=== PATIENT | female | born 1995 | race African-American/Black ===

== ENCOUNTER 2016-08-13 22:26 | Observation (INO) | payer MEDICAID ==
[2016-08-13 22:48] LABS: BILIRUBIN,URINE NEGATIVE (NEG); GLUCOSE,URINE NEGATIVE (NEG); NITRITE,URINE NEGATIVE (NEG); PH,URINE 6.5; PROTEIN,URINE NEGATIVE (NEG-TRACE)
[2016-08-13 22:52] LABS: BACTERIA,URINE FEW /HPF (0-FEW); RBC,URINE OCC /HPF (0-2); SQUAMOUS EPITHELIAL CELL,UR MOD /LPF
[2016-08-13 22:55] LABS: BARBITURATES NEG (NEG); BENZODIAZEPINES NEG (NEG); CANNABINOIDS NEG (NEG); COCAINE NEG (NEG); METHADONE NEG (NEG); OPIATES NEG (NEG); PHENCYCLIDINE NEG (NEG)
[2016-08-13 22:56] LABS: ETHANOL, URINE NEG (NEG)
[2016-08-14] MEDS ORDERED: PANTOPRAZOLE 40 MG TABLET.DR. PO ONE
== END 2016-08-13 23:50 | disposition home or self-care (01) ==
LOC: 3 SO LND 22:26
PROVIDERS: ADMIT Obstetrics & Gynecology; ATTEND Obstetrics & Gynecology
DX: O26.892 Other specified pregnancy related conditions, second trimester (principal); R52 Pain, unspecified; M54.9 Dorsalgia, unspecified; N89.8 Other specified noninflammatory disorders of vagina; Z3A.26 26 weeks gestation of pregnancy
CPT/HCPCS: 81001; G0378; G0379; G0481; 87086

== ENCOUNTER 2016-10-17 23:46 | Observation (INO) | payer MEDICAID, OTHER ==
[2016-10-17] MEDS ORDERED: IV RINGERS,LACTATED 1000ML 1,000 ML IV SCH (23:56)
[2016-10-18 00:06] LABS: BILIRUBIN,URINE NEGATIVE (NEG); GLUCOSE,URINE NEGATIVE (NEG); NITRITE,URINE NEGATIVE (NEG); PROTEIN,URINE 30 mg/dL (NEG-TRACE); UROBILINOGEN,URINE 0.2 mg/dL (0.2 mg/dL)
[2016-10-18 00:12] LABS: BARBITURATES NEG (NEG); BENZODIAZEPINES NEG (NEG); CANNABINOIDS POS (NEG); COCAINE NEG (NEG); METHADONE NEG (NEG); OPIATES NEG (NEG); PHENCYCLIDINE NEG (NEG)
[2016-10-18 00:21] LABS: BACTERIA,URINE FEW /HPF (0-FEW); RBC,URINE 0 /HPF (0-2); SQUAMOUS EPITHELIAL CELL,UR MANY /LPF
== END 2016-10-18 01:26 | disposition home or self-care (01) ==
LOC: 3 SO LND 23:46
PROVIDERS: ADMIT Obstetrics & Gynecology; ATTEND Obstetrics & Gynecology
DX: O62.9 Abnormality of forces of labor, unspecified (principal); O36.8130 Decreased fetal movements, third trimester, not applicable or unspecified; Z3A.36 36 weeks gestation of pregnancy
CPT/HCPCS: 81001; 87086; G0378; G0379; G0481

== ENCOUNTER 2018-11-01 18:15 | Emergency (ER) | payer OTHER ==
[~2018-11-01] VITALS: Ht 157.5 cm; Wt 114.8 kg
[2018-11-01 18:25] VITALS: BP 162/95
[2018-11-01] MEDS ORDERED: NAPROXEN 500 MG TABLET PO STA (18:46)
[2018-11-01] MEDS ORDERED: DICYCLOMINE HCL 10 MG CAPSULE PO ONE (19:00)
[2018-11-01] MEDS ORDERED: CYCLOBENZAPRINE 10 MG TABLET. PO ONE (19:00)
[2018-11-01] MEDS ORDERED: ONDANSETRON ODT 4 MG TAB.RAPDIS. PO ONE (19:00)
[2018-11-01] MEDS ORDERED: predniSONE 10 MG TABLET PO ONE (19:00)
--- NOTE | 2018-11-01 19:02 | PHYS DOC ---
Past Medical History Past Medical History: No Pertinent History (PARMA AGUILAR APRN) Past Surgical History: Cholecystectomy, Tonsillectomy (PARAM AGUILAR APRN) Additional Information: 5 smokes/day Alcohol Use: None Drug Use: None (PARAM AGUILAR APRN) Adult General Chief Complaint Chief Complaint: NAUSEA/VOMITING/DIARRHA HPI HPI Patient is a 23 year old female with no significant medical history who p resents to the ED today complaining of nasal congestion, low back pain, nausea, vomiting, diarrhea, symptoms began today. Patient also complaining of mild frontal headache. Denies any fever. Denies any coughing. Denies any chance she is . Denies any abdominal pain. Denies any hematuria. (PARAM AGUILAR APRN) Review of Systems Review of Systems Constitutional: Denies fever or chills [] Eyes: Denies change in visual acuity, redness, or eye pain [] HENT: Denies nasal congestion or sore throat [] Respiratory: Denies cough or shortness of breath [] Cardiovascular: No additional information not addressed in HPI [] GI: Reports nausea, vomiting, diarrhea, denies abdominal pain : Denies dysuria or hematuria [] Musculoskeletal: Reports low back pain. Integument: Denies rash or skin lesions [] Neurologic: Reports headache, denies focal weakness or sensory changes [] All other systems were reviewed and found to be within normal limits, except as documented in this note. (PARAM AGUILAR APRN) Current Medications Current Medications Current Medications Medications (Trade) Dose Ordered Sig/Suzie Start Time Stop Time Status Last Admin Dose Admin Cyclobenzaprine HCl (Flexeril) 10 mg 1X ONCE 11/01/18 19:00 11/01/18 19:01 DC 11/01/18 19:19 10 MG Dicyclomine HCl (Bentyl) 20 mg 1X ONCE 11/01/18 19:00 11/01/18 19:01 DC 11/01/18 19:17 20 MG Naproxen (Naprosyn) 500 mg 1X STAT 11/01/18 18:46 11/01/18 18:52 DC 11/01/18 19:17 500 MG Ondansetron HCl (Zofran Odt) 4 mg 1X ONCE 11/01/18 19:00 11/01/18 19:01 DC 11/01/18 19:16 4 MG Prednisone (Prednisone) 50 mg 1X ONCE 11/01/18 19:00 11/01/18 19:01 DC 11/01/18 19:16 50 MG (ZAIRA JUAN DO) Allergies Allergies Allergies Coded Allergies Type Severity Reaction Last Updated Verified No Known Drug Allergies 08/13/16 No (ZAIRA JUAN DO) Physical Exam Physical Exam Constitutional: Well developed, well nourished, no acute distress, non-toxic appearance. [] HENT: Normocephalic, atraumatic, bilateral external ears normal, oropharynx moist, no oral exudates, nose normal. [] Eyes: PERRLA, EOMI, conjunctiva normal, no discharge. [] Neck: Normal range of motion, no tenderness, supple, no stridor. [] Cardiovascular:Heart rate regular rhythm, no murmur [] Lungs & Thorax: Bilateral breath sounds clear to auscultation [] Abdomen: Bowel sounds normal, soft, no tenderness, no masses, no pulsatile masses. [] Skin: Warm, dry, no erythema, no rash. [] Back: No tenderness, no CVA tenderness. [] Extremities: No tenderness, no cyanosis, no clubbing, ROM intact, no edema. [] Neurologic: Alert and oriented X 3, normal motor function, normal sensory function, no focal deficits noted. Cranial nerves II through XII intact Psychologic: Affect normal, judgement normal, mood normal. [] (PARAM AGUILAR APRN) Current Patient Data Vital Signs Vital Signs Date Time Temp Pulse Resp B/P (MAP) Pulse Ox O2 Delivery O2 Flow Rate FiO2 11/01/18 18:25 99.2 106 20 162/95 (117) 95 Room Air 99.2 (ZAIRA JUAN DO) Lab Values Laboratory Tests Test 11/01/18 18:30 11/01/18 18:43 Urine Color Yellow Urine Clarity Clear Urine pH 6.0 Urine Specific [place] 1.025 Urine Protein Negative mg/dL (NEG-TRACE) Urine Glucose (UA) Negative mg/dL (NEG) Urine Ketones (Stick) Negative mg/dL (NEG) Urine Blood Large (NEG) Urine Nitrite Negative (NEG) Urine Bilirubin Negative (NEG) Urine Urobilinogen Dipstick 0.2 mg/dL (0.2 mg/dL) Urine Leukocyte Esterase Trace (NEG) Urine RBC 1-2 /HPF (0-2) Urine WBC 1-4 /HPF (0-4) Urine Squamous Epithelial Cells Occ /LPF Urine Bacteria 0 /HPF (0-FEW) Urine Mucus Slight /LPF Urine Opiates Screen Neg (NEG) Urine Methadone Screen Neg (NEG) Urine Barbiturates Neg (NEG) Urine Phencyclidine Screen Neg (NEG) Urine Amphetamine/Methamphetamine Neg (NEG) Urine Benzodiazepines Screen Neg (NEG) Urine Cocaine Screen Neg (NEG) Urine Cannabinoids Screen Neg (NEG) Urine Ethyl Alcohol Neg (NEG) POC Urine HCG, Qualitative Hcg negative (Negative) (ZAIRA JUAN DO) EKG EKG [] (PARAM AGUILAR APRN) Radiology/Procedures Radiology/Procedures [] (PARAM AGUILAR APRN) Course & Med Decision Making Course & Med Decision Making Pertinent Labs and Imaging studies reviewed. (See chart for details) This is a 23-year-old female patient who presents to the ED today complaining of nausea, vomiting, diarrhea, headache, nasal congestion that began today. Patient appears well. She is in no distress. Negative urine hCG. Urine analysis is negative for infection. Patient was given prednisone, naproxen, cyclobenzaprine. D/C to home and Instructed to follow-up with her own PCP in 1-2 weeks. She requested a note for work which was provided for 2 days. (PARAM AGUILAR APRN) Dragon Disclaimer Dragon Disclaimer This electronic medical record was generated, in whole or in part, using a voice recognition dictation system. (PARAM AGUILAR APRN) Departure Departure Impression: Primary Impression: Back pain Additional Impressions: Vomiting and diarrhea Upper respiratory infection Headache Disposition: 01 HOME, SELF-CARE Condition: STABLE Referrals: NO PCP (PCP) follow up in 1 week with your doctor Patient Instructions: Back Pain, Adult, Headache, FAQs, Nausea and Vomiting, Qfhn-ff-Doul, Upper Respiratory Infection, Adult, [place] Additional Instructions: You were evaluated in the emergency room, most of your symptoms are viral. Please take the prescribed medications as ordered. Follow-up with your own doctor in 1-2 weeks. We provided do note for work for 2 days. Rest and push fluids. Scripts Pseudoephedrine Hcl (PSEUDOEPHEDRINE) 120 Mg Tablet.er 1 TAB PO BID, #10 TAB Prov: PARAM AGUILAR APRN 11/01/18 Prednisone (PREDNISONE) 50 Mg Tablet 1 TAB PO DAILY, #5 TAB Prov: PARAM AGUILAR APRN 11/01/18 Diclofenac Sodium (DICLOFENAC SODIUM) 50 Mg Tablet.dr 1 TAB PO BID, #20 TAB 0 Refills Prov: PARAM AGUILAR APRN 11/01/18 Ondansetron Hcl (ZOFRAN) 4 Mg Tablet 1 TAB PO Q6HRS, #20 TAB Prov: PARAM AGUILAR APRN 11/01/18 Ondansetron Hcl (ZOFRAN) 4 Mg Tablet 1 TAB PO Q6HRS, #20 TAB Prov: PARAM AGUILAR APRN 11/01/18 Cyclobenzaprine Hcl (CYCLOBENZAPRINE HCL) 10 Mg Tablet 1 TAB PO TID, #30 TAB Prov: PARAM AGUILAR APRN 11/01/18 Attending Signature Attending Signature I have reviewed the PA/LETTERPRESS SETTER's note and plan of care. I was available for consultation as needed during the patient's visit in the emergency department. I agree with the clinical impression, plan, and disposition. (ZAIRA JUAN DO) Problem Qualifiers Primary Impression: Back pain Back pain location: low back pain Chronicity: acute Back pain laterality: bilateral Sciatica presence: without sciatica Qualified Codes: M54.5 - Low back pain Additional Impressions: Upper respiratory infection URI type: unspecified URI Qualified Codes: J06.9 - Acute upper respiratory infection, unspecified Headache Headache type: unspecified Headache chronicity pattern: acute headache Intractability: not intractable Qualified Codes: R51 - Headache PARAM AGUILAR INOCENTE Nov 01, 2018 19:02 ZAIRA JUAN DO Nov 03, 2018 05:09
[2018-11-01 19:03] LABS: BARBITURATES NEG (NEG); BENZODIAZEPINES NEG (NEG); CANNABINOIDS NEG (NEG); COCAINE NEG (NEG); METHADONE NEG (NEG); OPIATES NEG (NEG); PHENCYCLIDINE NEG (NEG)
[2018-11-01 19:05] LABS: AMPHETAMINE/METHAMPHETAMINE NEG (NEG)
[2018-11-01 19:07] LABS: BILIRUBIN,URINE NEGATIVE (NEG); CLARITY,URINE CLEAR; COLOR,URINE YELLOW; NITRITE,URINE NEGATIVE (NEG); PROTEIN,URINE NEGATIVE (NEG-TRACE); UROBILINOGEN,URINE 0.2 mg/dL (0.2 mg/dL)
[2018-11-01 19:33] LABS: BACTERIA,URINE 0 /HPF (0-FEW); SQUAMOUS EPITHELIAL CELL,UR OCC /LPF
[2018-11-01] MEDS ORDERED: DICL50TA4 PO (19:46)
[2018-11-01] MEDS ORDERED: ONDA4TAB7 PO (19:46)
[2018-11-01] MEDS ORDERED: PRED50TA PO (19:46)
[2018-11-01] MEDS ORDERED: CYCL10TA2 PO (19:46)
[2018-11-01] MEDS ORDERED: PSEU120T58 PO (19:46)
== END 2018-11-01 20:03 | disposition home or self-care (01) ==
LOC: ER 18:15
DX: J06.9 Acute upper respiratory infection, unspecified (principal); R51 Headache; R11.2 Nausea with vomiting, unspecified; R19.7 Diarrhea, unspecified; M54.5 Low back pain; Z90.49 Acquired absence of other specified parts of digestive tract; F17.200 Nicotine dependence, unspecified, uncomplicated
CPT/HCPCS: 80307; 81001; 81025; 99284; J7512; Q0162

== ENCOUNTER 2019-02-16 16:56 | Emergency (ER) | payer OTHER ==
[~2019-02-16] VITALS: Ht 160 cm; Wt 117.9 kg
[~2019-02-16 16:56] MED LIST: CYCL10TA2 PO; DICL50TA4 PO; ONDA4TAB7 PO; PRED50TA PO; PSEU120T58 PO
[2019-02-16] MEDS ORDERED: CLINDAMYCIN 600MG PREMIX 50 ML IV ONE (17:45)
[2019-02-16] MEDS ORDERED: IV NORMAL SALINE 1000ML BAG 1,000 ML IV ONE (17:45)
[2019-02-16] MEDS ORDERED: ONDANSETRON PF 4 MG/2 ML VIAL. IV ONE (17:45)
[2019-02-16] MEDS ORDERED: MORPHINE SULFATE 4 MG/ML VIAL. IV ONE (17:45)
--- NOTE | 2019-02-16 17:51 | PHYS DOC ---
Past Medical History Past Medical History: No Pertinent History (GABRIELA PRINGLE MD) Past Surgical History: No Surgical History, Cholecystectomy, Tonsillectomy (GABRIELA PRINGLE MD) Alcohol Use: None Drug Use: None (GABRIELA PRINGLE MD) Adult General Chief Complaint Chief Complaint: DENTAL PROBLEM HPI HPI Patient is a 23 year ol female presents with 5 days of left lower molar dental pain was on amoxicillin it was getting worse Switch to azithromycin increasing now hurts to swallow hard to open mouth all the way no fevers that she knows of no medical history denies any allergies The dentist wouldn't take the tooth out due to swelling and pain moderate radiates to the neck no shortness of breath d (GABRIELA PRINGLE MD) Review of Systems Review of Systems Constitutional: Denies fever or chills [] Eyes: Denies change in visual acuity, redness, or eye pain [] : Denies dysuria or hematuria [] Musculoskeletal: Denies back pain or joint pain [] Integument: Denies rash or skin lesions [] Neurologic: Denies headache, focal weakness or sensory changes [] Endocrine: Denies polyuria or polydipsia [] All other systems were reviewed and found to be within normal limits, except as documented in this note. (GABRIELA PRINGLE MD) Current Medications Current Medications Current Medications Medications (Trade) Dose Ordered Sig/Suzie Start Time Stop Time Status Last Admin Dose Admin Acetaminophen/ Hydrocodone Bitart (Lortab 5/325) 1 tab 1X ONCE 02/16/19 21:00 02/16/19 21:01 UNV 02/16/19 21:03 1 TAB Clindamycin Phosphate 50 ml @ 100 mls/hr 1X ONCE 02/16/19 17:45 02/16/19 18:14 DC 02/16/19 18:55 100 MLS/HR Info (CONTRAST GIVEN -- Rx MONITORING) 1 each PRN DAILY PRN 02/16/19 18:15 02/18/19 18:14 Iohexol (Omnipaque 300 Mg/ml) 70 ml 1X ONCE 02/16/19 18:15 02/16/19 18:16 DC 02/16/19 20:22 70 ML Ketorolac Tromethamine (Toradol 15mg Vial) 15 mg STK-MED ONCE 02/16/19 20:00 02/16/19 20:00 DC Ketorolac Tromethamine (Toradol 30mg Vial) 30 mg 1X ONCE 02/16/19 20:00 02/16/19 20:01 DC 02/16/19 20:06 30 MG Methylprednisolone Sodium Succinate (SOLU-Medrol 125MG VIAL) 125 mg 1X ONCE 02/16/19 20:00 02/16/19 20:01 DC 02/16/19 20:02 125 MG Morphine Sulfate (Morphine Sulfate) 4 mg 1X ONCE 02/16/19 17:45 02/16/19 17:46 DC 02/16/19 18:54 4 MG Ondansetron HCl (Zofran) 4 mg 1X ONCE 02/16/19 17:45 02/16/19 17:46 DC 02/16/19 18:50 4 MG Sodium Chloride 1,000 ml @ 1,000 mls/hr 1X ONCE 02/16/19 17:45 02/16/19 18:44 DC 02/16/19 18:50 1,000 MLS/HR (TERESA VARELA MD) Allergies Allergies Allergies Coded Allergies Type Severity Reaction Last Updated Verified No Known Drug Allergies 08/13/16 No (TERESA VARELA MD) Physical Exam Physical Exam Constitutional: Well developed, well nourished, no acute distress, non-toxic appearance. [] HENT: Patient has swelling of the left lower face at the angle of the mandible there is trismus the airways patent can see the uvula there are no signs of sublingual edema there is some submandibular swelling on the left anteriorly voice is normal Neck: Normal range of motion, no tenderness, supple, no stridor. [] Cardiovascular:Heart rate regular rhythm, no murmur [] Lungs & Thorax: Bilateral breath sounds clear to auscultation [] Skin: Warm, dry, no erythema, no rash. [] Back: No tenderness, no CVA tenderness. [] Extremities: No tenderness, no cyanosis, no clubbing, ROM intact, no edema. [] Neurologic: Alert and oriented X 3, normal motor function, normal sensory function, no focal deficits noted. [] Psychologic: Affect normal, judgement normal, mood normal. [] (GABRIELA PRINGLE MD) Current Patient Data Vital Signs Vital Signs Date Time Temp Pulse Resp B/P (MAP) Pulse Ox O2 Delivery O2 Flow Rate FiO2 02/16/19 21:03 18 99 Room Air 02/16/19 19:30 71 122/58 (79) 02/16/19 17:33 98.0 98.0 (TERESA VARELA MD) Lab Values Laboratory Tests Test 02/16/19 18:48 White Blood Count 5.2 x10^3/uL (4.0-11.0) Red Blood Count 5.08 x10^6/uL (3.50-5.40) Hemoglobin 13.8 g/dL (12.0-15.5) Hematocrit 41.7 % (36.0-47.0) Mean Corpuscular Volume 82 fL (79-100) Mean Corpuscular Hemoglobin 27 pg (25-35) Mean Corpuscular Hemoglobin Concent 33 g/dL (31-37) Red Cell Distribution Width 13.9 % (11.5-14.5) Platelet Count 229 x10^3/uL (140-400) Neutrophils (%) (Auto) 29 % (31-73) L Lymphocytes (%) (Auto) 54 % (24-48) H Monocytes (%) (Auto) 11 % (0-9) H Eosinophils (%) (Auto) 5 % (0-3) H Basophils (%) (Auto) 1 % (0-3) Neutrophils # (Auto) 1.5 x10^3/uL (1.8-7.7) L Lymphocytes # (Auto) 2.8 x10^3/uL (1.0-4.8) Monocytes # (Auto) 0.6 x10^3/uL (0.0-1.1) Eosinophils # (Auto) 0.3 x10^3/uL (0.0-0.7) Basophils # (Auto) 0.0 x10^3/uL (0.0-0.2) Maternal Serum HCG Beta Subunit < 1 mIU/mL (0-5) Sodium Level 144 mmol/L (136-145) Potassium Level 4.0 mmol/L (3.5-5.1) Chloride Level 107 mmol/L (98-107) Carbon Dioxide Level 28 mmol/L (21-32) Anion Gap 9 (6-14) Blood Urea Nitrogen 8 mg/dL (7-20) Creatinine 0.7 mg/dL (0.6-1.0) Estimated GFR (Cockcroft-Gault) 125.5 BUN/Creatinine Ratio 11 (6-20) Glucose Level 76 mg/dL (70-99) Lactic Acid Level 0.8 mmol/L (0.4-2.0) Calcium Level 8.7 mg/dL (8.5-10.1) Total Bilirubin 0.2 mg/dL (0.2-1.0) Aspartate Amino Transferase (AST) 31 U/L (15-37) Alanine Aminotransferase (ALT) 39 U/L (14-59) Alkaline Phosphatase 63 U/L (46-116) Total Protein 7.3 g/dL (6.4-8.2) Albumin 3.1 g/dL (3.4-5.0) L Albumin/Globulin Ratio 0.7 (1.0-1.7) L Laboratory Tests 02/16/19 18:48 Laboratory Tests 02/16/19 18:48 (TERESA VARELA MD) Lab Values Laboratory Tests Test 02/16/19 18:48 White Blood Count 5.2 x10^3/uL (4.0-11.0) Red Blood Count 5.08 x10^6/uL (3.50-5.40) Hemoglobin 13.8 g/dL (12.0-15.5) Hematocrit 41.7 % (36.0-47.0) Mean Corpuscular Volume 82 fL (79-100) Mean Corpuscular Hemoglobin 27 pg (25-35) Mean Corpuscular Hemoglobin Concent 33 g/dL (31-37) Red Cell Distribution Width 13.9 % (11.5-14.5) Platelet Count 229 x10^3/uL (140-400) Neutrophils (%) (Auto) 29 % (31-73) L Lymphocytes (%) (Auto) 54 % (24-48) H Monocytes (%) (Auto) 11 % (0-9) H Eosinophils (%) (Auto) 5 % (0-3) H Basophils (%) (Auto) 1 % (0-3) Neutrophils # (Auto) 1.5 x10^3/uL (1.8-7.7) L Lymphocytes # (Auto) 2.8 x10^3/uL (1.0-4.8) Monocytes # (Auto) 0.6 x10^3/uL (0.0-1.1) Eosinophils # (Auto) 0.3 x10^3/uL (0.0-0.7) Basophils # (Auto) 0.0 x10^3/uL (0.0-0.2) Maternal Serum HCG Beta Subunit < 1 mIU/mL (0-5) Sodium Level 144 mmol/L (136-145) Potassium Level 4.0 mmol/L (3.5-5.1) Chloride Level 107 mmol/L (98-107) Carbon Dioxide Level 28 mmol/L (21-32) Anion Gap 9 (6-14) Blood Urea Nitrogen 8 mg/dL (7-20) Creatinine 0.7 mg/dL (0.6-1.0) Estimated GFR (Cockcroft-Gault) 125.5 BUN/Creatinine Ratio 11 (6-20) Glucose Level 76 mg/dL (70-99) Lactic Acid Level 0.8 mmol/L (0.4-2.0) Calcium Level 8.7 mg/dL (8.5-10.1) Total Bilirubin 0.2 mg/dL (0.2-1.0) Aspartate Amino Transferase (AST) 31 U/L (15-37) Alanine Aminotransferase (ALT) 39 U/L (14-59) Alkaline Phosphatase 63 U/L (46-116) Total Protein 7.3 g/dL (6.4-8.2) Albumin 3.1 g/dL (3.4-5.0) L Albumin/Globulin Ratio 0.7 (1.0-1.7) L Laboratory Tests 02/16/19 18:48 Laboratory Tests 02/16/19 18:48 Microbiology 02/16/19 Blood Culture - Preliminary, Resulted NO GROWTH AFTER 1 DAY (GABRIELA PRINGLE MD) EKG EKG [] (GABRIELA PRINGLE MD) Radiology/Procedures Radiology/Procedures [] (GABRIELA PRINGLE MD) Radiology/Procedures [facility] [address] [place], [place] [id number] IMAGING REPORT Signed PATIENT: CARLOS ENRIQUE CORDEROCCOUNT: [id number] : 1995 LOCATION: ER AGE: 23 SEX: F EXAM STATUS: REG ER ORD. PHYSICIAN: GABRIELA PRINGLE MD REASON: EVAL FOR LEFT MANDIBLE ABSCESS, WAITING FOR CREAT/UPREG. PROCEDURE: CT MAXILLOFACIAL W/CONTRAST PQRS Compliance Statement: One or more of the following individualized dose reduction techniques were utilized for this examination: 1. Automated exposure control 2. Adjustment of the mA and/or kV according to patient size 3. Use of iterative reconstruction technique CT MAXILLOFACIAL W/CONTRAST 02/16/2019 5:36 PM Indication: Mandibular abscess Comparison: None available TECHNIQUE: Multiple axial CT images of the maxillofacial structures were obtained after the intravenous administration of nonionic contrast. Coronal and sagittal reformats are provided. FINDINGS: No suspicious abnormality identified within the visualized portions of brain parenchyma and posterior fossa. Visualized [place] appears intact. Orbits are normal in appearance. Small right maxillary retention cyst identified. Repairer [employer] space is intact. Parapharyngeal fat is preserved. Nasopharynx, oropharynx and hypopharynx are intact. Visualized larynx is normal in appearance. No pathologically enlarged cervical lymph nodes are identified. Maxillary dentition are intact. Maxilla is normal in appearance. Nasal septum is predominantly midline. Ostiomeatal units are widely patent. Osseous orbits are intact. Mandibular dentition are intact. Mandible is intact. No acute fracture is identified. No osseous erosion. Floor of mouth and sublingual space is intact. Platysma is normal in appearance. No abscess is visualized involving the left mandible. IMPRESSION: No evidence for maxillofacial abscess. Electronically signed by: Maria Del Carmen Batres MD (02/16/2019 8:29 PM) [facility] DICTATED and SIGNED BY: MARIA DEL CARMEN BATRES MD DATE: 02/16/192028 (TERESA VARELA MD) Course & Med Decision Making Course & Med Decision Making Pertinent Labs and Imaging studies reviewed. (See chart for details) []Facial swelling worsening despite oral antibiotics labs and CT imaging have been ordered Care signed out to Dr. varela 6pm (GABRIELA PRINGLE MD) Course & Med Decision Making Labs and CT was unremarkable. Patient has appointment with his dentist in 2 days. Patient was advised to follow-up with her dentist and plan discharge with diagnosis of dental pain and cellulitis of face. I've spoken with the patient and/or caregivers. I've explained the patient's condition, diagnosis and treatment plan based on information available to me at this time. I've answered the patient's and/or caregivers questions and addressed any concerns. The patient and/or caregivers have a good understanding the patient's diagnosis, condition and treatment plan as can be expected at this point. Vital signs have been stabilized. The patient's condition is stable for discharge from the emergency department. The patient will pursue further outpatient evaluation with her primary care provider or other designated consulting physician as outlined in the discharge instructions. Patient and/or caregivers are agreeable to this plan of care and follow-up instructions have been explained in detail. The patient and/or caregivers have received these instructions in written format and expressed understanding of these discharge instructions. The patient and her caregivers are aware that if any significant change in condition or worsening of symptoms should prompt him to immediately return to this of the closest emergency department. If an emergent department is not readily available I would encourage him to call 911. (TERESA VARELA MD) Dragon Disclaimer Dragon Disclaimer This electronic medical record was generated, in whole or in part, using a voice recognition dictation system. (GABRIELA PRINGLE MD) Departure Departure Impression: Primary Impression: Dentalgia Additional Impressions: Facial cellulitis Morbid obesity Disposition: HOME, SELF-CARE (at 2041) Condition: IMPROVED Referrals: LITO MANRIQUE (PCP) Patient Instructions: Cellulitis, Dental Pain Additional Instructions: Drink plenty of liquids Follow-up with your dentist in 2 or 3 day Return to ER if not getting better Scripts Hydrocodone/Apap 5-325 (NORCO 5-325 TABLET) 1 Each Tablet 1 TAB PO PRN Q6HRS PRN for PAIN, #10 TAB 0 Refills Prov: TERESA VARELA MD 02/16/19 Methylprednisolone (MEDROL) 4 Mg Tab.ds.pk 1 PKG PO UD for inflammation, #1 PKG Prov: TERESA VARELA MD 02/16/19 Naproxen (NAPROSYN) 500 Mg Tablet 1 TAB PO BID for pain, #20 TAB Prov: TERESA VARELA MD 02/16/19 Clindamycin Hcl (CLINDAMYCIN HCL) 150 Mg Capsule 1 CAP PO QID, #40 CAP Prov: TERESA VARELA MD 02/16/19 Problem Qualifiers GABRIELA PRINGLE MD Feb 16, 2019 17:51 TERESA VARELA MD Feb 16, 2019 20:14
[2019-02-16] MEDS ORDERED: IOHEXOL 300 MG/ML 100ML VIAL. IV ONE (18:15)
[2019-02-16] MEDS ORDERED: CONTRAST GIVEN. MC PRN (18:15)
[2019-02-16 19:09] LABS: BASO % 1 % (0-3); EOS # 0.3 x10^3/uL (0.0-0.7); EOS % 5 % (0-3); HEMATOCRIT 41.7 % (36.0-47.0); HEMOGLOBIN 13.8 g/dL (12.0-15.5); LYMPH # 2.8 x10^3/uL (1.0-4.8); LYMPH % 54 % (24-48); MEAN CORPUSCULAR HEMOGLOBIN 27 pg (25-35); MEAN CORPUSCULAR HGB CONC 33 g/dL (31-37); MEAN CORPUSCULAR VOLUME 82 fL (79-100); MONO # 0.6 x10^3/uL (0.0-1.1); MONO % 11 % (0-9); NEUT # 1.5 x10^3/uL (1.8-7.7); NEUT % 29 % (31-73); PLATELET COUNT 229 x10^3/uL (140-400); RED BLOOD COUNT 5.08 x10^6/uL (3.50-5.40); RED CELL DISTRIBUTION WIDTH 13.9 % (11.5-14.5); WHITE BLOOD COUNT 5.2 x10^3/uL (4.0-11.0)
[2019-02-16 19:29] LABS: CALCIUM 8.7 mg/dL (8.5-10.1); CREATININE 0.7 mg/dL (0.6-1.0); GFR 125.5
[2019-02-16 19:38] LABS: ALBUMIN 3.1 g/dL (3.4-5.0); ALBUMIN/GLOBULIN RATIO 0.7 (1.0-1.7); TOTAL BILIRUBIN 0.2 mg/dL (0.2-1.0); TOTAL PROTEIN 7.3 g/dL (6.4-8.2)
[2019-02-16] MEDS ORDERED: methylPREDNISolone SOD SUCC PF 125 MG/2 ML VIAL. IV ONE (20:00)
[2019-02-16] MEDS ORDERED: KETOROLAC 30 MG/ML VIAL. IVP ONE (20:00)
[2019-02-16] MEDS ORDERED: KETOROLAC 15 MG/ML VIAL. ONE (20:00)
--- NOTE | 2019-02-16 20:32 | RAD ---
PQRS Compliance Statement: One or more of the following individualized dose reduction techniques were utilized for this examination: 1. Automated exposure control 2. Adjustment of the mA and/or kV according to patient size 3. Use of iterative reconstruction technique CT MAXILLOFACIAL W/CONTRAST 02/16/2019 5:36 PM Indication: Mandibular abscess Comparison: None available TECHNIQUE: Multiple axial CT images of the maxillofacial structures were obtained after the intravenous administration of nonionic contrast. Coronal and sagittal reformats are provided. FINDINGS: No suspicious abnormality identified within the visualized portions of brain parenchyma and posterior fossa. Visualized [place] appears intact. Orbits are normal in appearance. Small right maxillary retention cyst identified. Mobile Application Engineer space is intact. Parapharyngeal fat is preserved. Nasopharynx, oropharynx and hypopharynx are intact. Visualized larynx is normal in appearance. No pathologically enlarged cervical lymph nodes are identified. Maxillary dentition are intact. Maxilla is normal in appearance. Nasal septum is predominantly midline. Ostiomeatal units are widely patent. Osseous orbits are intact. Mandibular dentition are intact. Mandible is intact. No acute fracture is identified. No osseous erosion. Floor of mouth and sublingual space is intact. Platysma is normal in appearance. No abscess is visualized involving the left mandible. IMPRESSION: No evidence for maxillofacial abscess. Electronically signed by: Sharon Huynh MD (02/16/2019 8:29 PM) [facility]
[2019-02-16 20:45] VITALS: BP 129/68
[2019-02-16] MEDS ORDERED: NAPR-683 PO (20:48)
[2019-02-16] MEDS ORDERED: CLIN150C14 PO (20:48)
[2019-02-16] MEDS ORDERED: METH4TAB2 PO (20:48)
[2019-02-16] MEDS ORDERED: HYDROcodone/APAP 5/325MG 1 TAB TABLET PO ONE (21:00)
[2019-02-16] MEDS ORDERED: HYDR-3164 PO (21:09)
== END 2019-02-16 21:10 | disposition home or self-care (01) ==
LOC: ER 16:56
DX: K08.89 Other specified disorders of teeth and supporting structures (principal); L03.211 Cellulitis of face; E66.01 Morbid (severe) obesity due to excess calories; Z68.42 Body mass index [BMI] 45.0-49.9, adult; Z90.49 Acquired absence of other specified parts of digestive tract; Z90.89 Acquired absence of other organs
CPT/HCPCS: 36415; 70487; 80053; 83605; 84702; 85025; 87040; 96365; 96375; 99285; J1885; J2270; J2405; J2930; J3490; J7030; Q9967

== ENCOUNTER 2019-06-26 21:43 | Emergency (ER) | payer OTHER ==
[~2019-06-26] VITALS: Ht 157.5 cm; Wt 118.1 kg
[~2019-06-26 21:43] MED LIST changes: +CLIN150C14 PO; +HYDR-3164 PO; +METH4TAB2 PO; +NAPR-683 PO
[2019-06-26 21:55] VITALS: BP 177/82
[2019-06-26] MEDS ORDERED: PENI500T PO (22:30)
[2019-06-26] MEDS ORDERED: HYDR-3164 PO (22:30)
--- NOTE | 2019-06-26 22:30 | PHYS DOC ---
Past Medical History Past Medical History: No Pertinent History, Other Additional Past Medical Histor: OBESITY Past Surgical History: No Surgical History, Cholecystectomy, Tonsillectomy Smoking Status: Current Every Day Smoker Alcohol Use: None Drug Use: None Adult General Chief Complaint Chief Complaint: DENTAL PROBLEM HPI HPI Patient is a 23 year old female who presents with dental pain with facial swelling since Sunday. Patient states she does have a dental appointment next Sunday. She rates her pain a 10 out of 10. Patient denies fever, nausea, vomiting, body aches. Review of Systems Review of Systems HENT: Denies nasal congestion or sore throat. Dental pain with facial swelling. [] All other systems were reviewed and found to be within normal limits, except as documented in this note. Allergies Allergies Allergies Coded Allergies Type Severity Reaction Last Updated Verified No Known Drug Allergies 08/13/16 No Physical Exam Physical Exam Constitutional: Well developed, well nourished, no acute distress, non-toxic appearance. [] HENT: Normocephalic, atraumatic, bilateral external ears normal, oropharynx moist, no oral exudates, nose normal. Many Right upper and lower dental caries with reddened gum line. Right facial swelling. [] Eyes: PERRLA, EOMI, conjunctiva normal, no discharge. [] Neck: Normal range of motion, no tenderness, supple, no stridor. [] Cardiovascular:Heart rate regular rhythm, no murmur [] Lungs & Thorax: Bilateral breath sounds clear to auscultation [] Abdomen: Bowel sounds normal, soft, no tenderness, no masses, no pulsatile masses. [] Skin: Warm, dry, no erythema, no rash. [] Back: No tenderness, no CVA tenderness. [] Extremities: No tenderness, no cyanosis, no clubbing, ROM intact, no edema. [] Neurologic: Alert and oriented X 3, normal motor function, normal sensory function, no focal deficits noted. [] Psychologic: Affect normal, judgement normal, mood normal. [] Current Patient Data Vital Signs Vital Signs Date Time Temp Pulse Resp B/P (MAP) Pulse Ox O2 Delivery O2 Flow Rate FiO2 06/26/19 21:55 98.5 85 20 177/82 (113) 100 Room Air 98.5 EKG EKG [] Radiology/Procedures Radiology/Procedures [] Course & Med Decision Making Course & Med Decision Making Pertinent Labs and Imaging studies reviewed. (See chart for details) She has right several upper and lower dental caries. Patient states that she knows that she needs to get some teeth pulled. She has right facial swelling. Alert and oriented. Speaks in full clear sentences. Skin pink warm and dry. Vital signs within normal limits. Patient states she's been taking approximately home for pain. Patient is given a prescription for penicillin and [place]. She is education to take naproxen with the [place]. When examined inside the mouth there was no abscess seen or felt. Upper and lower gumline was reddened and 1+ swollen. [] Dragon Disclaimer Dragon Disclaimer This electronic medical record was generated, in whole or in part, using a voice recognition dictation system. Departure Departure Impression: Primary Impression: Pain, dental Additional Impression: Dental abscess Disposition: HOME, SELF-CARE Condition: STABLE Referrals: LITO MANRIQUE (PCP) Patient Instructions: Dental Abscess, Dental Pain, [id number] Additional Instructions: Follow-up with her dentist as scheduled. Take medications as prescribed and with food. Scripts Penicillin V Potassium (PENICILLIN V POTASSIUM) 500 Mg Tablet 1 TAB PO QID, #40 TAB Prov: PHAM KEATING APRN 06/26/19 Hydrocodone/Apap 5-325 (NORCO 5-325 TABLET) 1 Each Tablet 1 TAB PO PRN Q6HRS PRN for PAIN, #12 TAB 0 Refills Prov: PHAM KEATING APRN 06/26/19 Problem Qualifiers PHAM KEATING APRN Jun 26, 2019 22:30
== END 2019-06-26 22:48 | disposition home or self-care (01) ==
LOC: ER 21:43
DX: K04.7 Periapical abscess without sinus (principal); F17.200 Nicotine dependence, unspecified, uncomplicated; E66.9 Obesity, unspecified; Z68.42 Body mass index [BMI] 45.0-49.9, adult
CPT/HCPCS: 99283

== ENCOUNTER 2019-07-25 16:33 | Emergency (ER) | payer OTHER ==
[~2019-07-25] VITALS: Ht 157.5 cm; Wt 126.3 kg
[~2019-07-25 16:33] MED LIST changes: +PENI500T PO
[2019-07-25 17:23] VITALS: BP 153/94
[2019-07-25] MEDS ORDERED: CHLO15MO2 PO (18:17)
[2019-07-25] MEDS ORDERED: OXYC-325 PO (18:17)
[2019-07-25] MEDS ORDERED: METH4TAB2 PO (18:17)
--- NOTE | 2019-07-25 18:17 | PHYS DOC ---
Past Medical History Past Medical History: No Pertinent History, Other Additional Past Medical Histor: OBESITY Past Surgical History: No Surgical History, Cholecystectomy, Tonsillectomy Smoking Status: Current Every Day Smoker Alcohol Use: None Drug Use: None Adult General Chief Complaint Chief Complaint: DENTAL PROBLEM HPI HPI Patient is a 23 year old female who presents with 3 days ago went to [facility] and got into with some teeth pulled in the right upper back. Patient states that yesterday she called because she was having increased pain and swelling and then she called again today and they stated that they could not see her. Patient states hopefully on Sunday they can see her. Rates her pain a 10 out of 10. She states that she started taking amoxicillin yesterday which would have been 2 days after the procedure. She states amoxicillin helps. She states hydrocodone does not help and just makes her have a hot flash. Patient rates her pain a 10 out of 10. Review of Systems Review of Systems Constitutional: Denies fever or chills [] Eyes: Denies change in visual acuity, redness, or eye pain [] HENT: Denies nasal congestion or sore throat [] Respiratory: Denies cough or shortness of breath [] Cardiovascular: No additional information not addressed in HPI [] GI: Denies abdominal pain, nausea, vomiting, bloody stools or diarrhea [] : Denies dysuria or hematuria [] Musculoskeletal: Denies back pain or joint pain [] Integument: Denies rash or skin lesions [] Neurologic: Denies headache, focal weakness or sensory changes [] Endocrine: Denies polyuria or polydipsia [] All other systems were reviewed and found to be within normal limits, except as documented in this note. Allergies Allergies Allergies Coded Allergies Type Severity Reaction Last Updated Verified No Known Drug Allergies 08/13/16 No Physical Exam Physical Exam Constitutional: Well developed, well nourished, no acute distress, non-toxic appearance. [] HENT: Normocephalic, atraumatic, bilateral external ears normal, oropharynx moist, no oral exudates, nose normal. 2 right upper back wisdom teeth extraction.[] Eyes: PERRLA, EOMI, conjunctiva normal, no discharge. [] Neck: Normal range of motion, no tenderness, supple, no stridor. [] Cardiovascular:Heart rate regular rhythm, no murmur [] Lungs & Thorax: Bilateral breath sounds clear to auscultation [] Abdomen: Bowel sounds normal, soft, no tenderness, no masses, no pulsatile masses. [] Skin: Warm, dry, no erythema, no rash. [] Back: No tenderness, no CVA tenderness. [] Extremities: No tenderness, no cyanosis, no clubbing, ROM intact, no edema. [] Neurologic: Alert and oriented X 3, normal motor function, normal sensory function, no focal deficits noted. [] Psychologic: Affect normal, judgement normal, mood normal. [] Current Patient Data Vital Signs Vital Signs Date Time Temp Pulse Resp B/P (MAP) Pulse Ox O2 Delivery O2 Flow Rate FiO2 07/25/19 17:23 98.2 68 16 153/94 (113) 96 Room Air 98.2 EKG EKG [] Radiology/Procedures Radiology/Procedures [] Course & Med Decision Making Course & Med Decision Making Pertinent Labs and Imaging studies reviewed. (See chart for details) Patient states that she has been smoking. Patient is educated that she should not be smoking and she likely has a dry socket. The gumline where the teeth were pulled is pink in color but there is no drainage and there is some tenderness. Patient is afebrile. Patient's right side of her face is still swollen at 1-2+. Patient states the swelling has gone down. Patient is currently on amoxicillin antibiotic. I have changed her pain medication to Percocet and put her on a Medrol Dosepak. I told patient to stop smoking and do not drink anything out of Straw and she needs to stay on soft foods. Patient is educated to continue taking the amoxicillin. Patient is to get into see her dentist as soon as possible. Upon walking into the room to discharge the patient patient stated that she was very angry that it took so long to be seen and that she is in a lot of pain. Is explained to the patient that we have some very critical sick patients and I am very sorry for a weight but those patients must be seen first. Patient states she does not care and that her pain is important and I need to just give her pain medicine. I stated that I need to speak with her about her visit and her pain and get some more information from her. That is when the patient told me that she has continued to smoke. I have told the patient she needs to stop s moking. Because now she has dry sockets. Patient states that understanding of this. Patient states her understanding that she needs to follow-up with a dentist as soon as possible. I have spoken to ED director Jose Alberto about the patient being upset about her wait. [] Breann Disclaimer [place] Disclaimer This electronic medical record was generated, in whole or in part, using a voice recognition dictation system. Departure Departure Impression: Primary Impression: Pain, dental Disposition: HOME, SELF-CARE Condition: STABLE Referrals: LITO MANRIQUE (PCP) Patient Instructions: Dental Pain, [id number] Additional Instructions: Follow up with dentist as soon as possible. Dont smoke or drink through a straw. Continuos taking your antibiotic as ordered. Eat a soft diet. Scripts Chlorhexidine Gluconate (PERIDEX) 15 Ml Mouthwash 15 ML PO BID for 30 Days, #946 ML 0 Refills Prov: PHAM KEATING APRN 07/25/19 Methylprednisolone (MEDROL) 4 Mg Tab.ds.pk 1 PKG PO UD, #1 PKG Prov: PHAM KEATING APRN 07/25/19 Oxycodone HCl/Acetaminophen (Percocet 5-325 mg Tablet) 1 Each Tablet 1 TAB PO QIDPRN PRN for PAIN MDD 4 Tablet(s) for 5 Days, #20 TAB 0 Refills Prov: PHAM KEATING APRN 07/25/19 PHAM KEATING APRN Jul 25, 2019 18:17
== END 2019-07-25 18:28 | disposition home or self-care (01) ==
LOC: ER 16:33
DX: K08.89 Other specified disorders of teeth and supporting structures (principal); R60.0 Localized edema; F17.200 Nicotine dependence, unspecified, uncomplicated; E66.9 Obesity, unspecified; Z68.43 Body mass index [BMI] 50.0-59.9, adult; Z90.49 Acquired absence of other specified parts of digestive tract
CPT/HCPCS: 99283

== ENCOUNTER 2021-01-19 15:08 | Emergency (ER) | payer OTHER ==
[~2021-01-19] VITALS: Ht 157.5 cm; Wt 140.9 kg
[~2021-01-19 15:08] MED LIST changes: +CHLO15MO2 PO; -CLIN150C14 PO; +CLIN150C16 PO; +OXYC-325 PO
[2021-01-19 16:05] LABS: CLARITY,URINE CLEAR
[2021-01-19 16:13] LABS: COLOR,URINE ORANGE
[2021-01-19 16:14] LABS: BACTERIA,URINE FEW /HPF (0-FEW); RBC,URINE 0 /HPF (0-2)
[2021-01-19 16:16] LABS: U PREG PATIENT NEGATIVE (NEG)
--- NOTE | 2021-01-19 16:37 | RAD ---
EXAM: ULTRASOUND PELVIS INDICATION: Reason: pelvic pain ovarian torsion? / Spl. Instructions: / History: . COMPARISON: Transabdominal and transvaginal sonography of the pelvis Clinical indications: Left-sided pelvic pain. Possible ovarian torsion. FINDINGS: Transabdominal sonography: The urinary bladder is empty. The uterus and ovaries cannot be visualized as a result due to overlying bowel gas. Therefore, transvaginal sonography will be performed. Transvaginal sonography: The endometrial canal measures 4 mm in thickness which is normal. No uterine mass or fibroid is apparent. The longitudinal and AP and transverse dimensions of the uterus are 7.9 cm and 4.0 cm and 4.8 cm respectively. The right ovary measures 2.1 cm and 4.0 cm and 2.9 cm in size and is normal. Color Doppler flow is seen within the right ovary. The left ovary measures 3.7 cm and 2.2 cm and 1.0 cm in size and is normal. Color Doppler flow is seen within the left ovary although d iminished in comparison to the right side and this may be due to technical factors. No adnexal mass o r free fluid is apparent. IMPRESSION: Unremarkable study. Electronically signed by: Nick Campoverde MD (01/19/2021 4:34 PM) [id number]
[2021-01-19 17:05] VITALS: BP 132/74
[2021-01-19] MEDS ORDERED: FLUC150T PO (17:41)
[2021-01-19] MEDS ORDERED: SULF1TAB24 PO (17:41)
--- NOTE | 2021-01-19 17:41 | PHYS DOC ---
Past Medical History Past Medical History: No Pertinent History, Other Additional Past Medical Histor: OBESITY Past Surgical History: Cholecystectomy, Tonsillectomy Smoking Status: Current Every Day Smoker Additional Information: 3 cigarettes daily Alcohol Use: None Drug Use: None General Adult EDM: Chief Complaint: VAGINAL PROBLEM HPI: HPI: Patient is a 25 year old female who presents to the ED today complaining of 8 out of 10 left pelvic pain, symptoms began last night. Patient denies anything specifically exacerbating or relieving the pain. Describes the pain as sharp and constant. She states she has tried taking Azo thinking she has a UTI with no relief. Review of Systems: Review of Systems: Constitutional: Denies fever or chills. [] GI: Reports left pelvic pain. Denies abdominal pain, nausea, vomiting, bloody stools or diarrhea. [] : Denies dysuria. [] Musculoskeletal: Denies back pain or joint pain. [] Integument: Denies rash. [] Neurologic: Denies headache, focal weakness or sensory changes. [] Psychiatric: Denies depression or anxiety. [] Heart Score: C/O Chest Pain: N/A Risk Factors: Risk Factors: DM, Current or recent (<one month) smoker, HTN, HLP, family history of CAD, obesity. Risk Scores: Score 0 - 3: 2.5% MACE over next 6 weeks - Discharge Home Score 4 - 6: 20.3% MACE over next 6 weeks - Admit for Clinical Observation Score 7 - 10: 72.7% MACE over next 6 weeks - Early Invasive Strategies Allergies: Allergies: Allergies Coded Allergies Type Severity Reaction Last Updated Verified No Known Drug Allergies 01/19/21 No Physical Exam: PE: Constitutional: Well developed, well nourished, no acute distress, non-toxic appearance. [] Abdomen: Obese abdomen. Bowel sounds normal, soft, no tenderness, no masses, no pulsatile masses. [] Pelvic exam External pelvic is normal, cervix is visualized, no CMT, slight left adnexal tenderness. Small amount of discharge in the vaginal vault. Skin: Warm, dry, no erythema, no rash. [] Back: No tenderness, no CVA tenderness. [] Extremities: No tenderness, no cyanosis, no clubbing, ROM intact, no edema. [] Neurologic: Alert and oriented X 3, normal motor function, normal sensory function, no focal deficits noted. [] Psychologic: Affect normal, judgement normal, mood normal. [] Current Patient Data: Labs: Laboratory Tests Test 01/19/21 15:25 Urine Collection Type Unknown Urine Color [place] Urine Clarity Clear Urine pH (<5.0-8.0) Urine Specific [place] (1.000-1.030) Urine Protein mg/dL (NEG-TRACE) Urine Glucose (UA) mg/dL (NEG) Urine Ketones (Stick) mg/dL (NEG) Urine Blood (NEG) Urine Nitrite (NEG) Urine Bilirubin (NEG) Urine Urobilinogen Dipstick mg/dL (0.2 mg/dL) Urine Leukocyte Esterase (NEG) Urine RBC 0 /HPF (0-2) Urine WBC 11-20 /HPF (0-4) Urine Squamous Epithelial Cells Many /LPF Urine Bacteria Few /HPF (0-FEW) Urine Mucus Mod /LPF Urine Test Negative (NEG) Microbiology 01/19/21 Wet Prep - Final, Complete Vital Signs: Vital Signs Date Time Temp Pulse Resp B/P (MAP) Pulse Ox O2 Delivery O2 Flow Rate FiO2 01/19/21 15:38 98.6 91 24 146/70 (95) 99 Room Air 98.6 EKG: EKG: [] Radiology/Procedures: Radiology/Procedures: []PROCEDURE: PELVIS W/TV EXAM: ULTRASOUND PELVIS INDICATION: Reason: pelvic pain ovarian torsion? / Spl. Instructions: / History: . COMPARISON: Transabdominal and transvaginal sonography of the pelvis Clinical indications: Left-sided pelvic pain. Possible ovarian torsion. FINDINGS: Transabdominal sonography: The urinary bladder is empty. The uterus and ovaries cannot be visualized as a result due to overlying bowel gas. Therefore, transvaginal sonography will be performed. Transvaginal sonography: The endometrial canal measures 4 mm in thickness which is normal. No uterine mass or fibroid is apparent. The longitudinal and AP and transverse dimensions of the uterus are 7.9 cm and 4.0 cm and 4.8 cm r espectively. The right ovary measures 2.1 cm and 4.0 cm and 2.9 cm in size and is normal. Color Doppler flow is seen within the right ovary. The left ovary measures 3.7 cm and 2.2 cm and 1.0 cm in size and is normal. Color Doppler flow is seen within the left ovary although diminished in comparison to the right side and this may be due to technical factors. No adnexal mass or free fluid is apparent. IMPRESSION: Unremarkable study. Electronically signed by: Iris Campoverde MD (01/19/2021 4:34 PM) [id number] DICTATED and SIGNED BY: IRIS CMAPOVERDE MD DATE: 01/19/21 [id number] 0 Course & Med Decision Making: Course & Med Decision Making Pertinent Labs and Imaging studies reviewed. (See chart for details) This a 25-year-old female patient presented to the ED today with left pelvic pain, symptoms began yesterday. Negative urine hCG, UA not able to be read due to color, but has 11-20 WBCs will treat for UTI Positive for yeast infection, negative clue cells. Pelvic ultrasound is negative Patient was discharged on Bactrim for 3 days and fluconazole. Follow-up with OB in 1 week Dragon Disclaimer: Dragon Disclaimer: This electronic medical record was generated, in whole or in part, using a voice recognition dictation system. Departure Departure Impression: Primary Impression: Urinary tract infection Qualified Codes: N30.00 - Acute cystitis without hematuria Additional Impressions: Pelvic pain Yeast infection Disposition: HOME / SELF CARE / HOMELESS Condition: STABLE Referrals: ISIDRO DAVILA MD (PCP) Follow-up in 1 week ZAIRA GONZALEZ MD follow up in 1 week Patient Instructions: Sandra Infection, Adult, Urinary Tract Infection Additional Instructions: You were evaluated in the emergency room for pelvic pain. Your pelvic ultrasound is negative for any acute findings. You were treated for urinary tract infection and yeast infection. Take the prescribed medications as ordered. Follow-up with your COUNTRY DIRECTOR or the provided COUNTRY DIRECTOR in 1 to 2 weeks Scripts Sulfamethoxazole/Trimethoprim (BACTRIM DS TABLET) 1 Each Tablet 1 TAB PO BID, #6 TAB 0 Refills Prov: PARAM AGUILAR BOOM TENDER 01/19/21 Fluconazole (DIFLUCAN) 150 Mg Tablet 1 TAB PO ONCE, #1 TAB 1 Refill Take 1 tablet today and repeat in 7 days. Prov: PARAM AGUILAR BOOM TENDER 01/19/21 PARAM AGUILAR APRN Jan 19, 2021 17:41
[2021-01-20 20:08] LABS: GC PROBE Negative (Negative)
--- NOTE | 2021-01-21 16:53 | VNOTE ---
CALL BACK NOTE CALL BACK Microbiology 01/19/21 Urine Culture - Final, Complete 01/19/21 Wet Prep - Final, Complete Patient was contacted 01/21/2021 at 1651. Patient was notified of positive chlamydia culture on her vaginal swab. She was advised to see her primary care provider, urgent care, or return to the department for IM antibiotic treatment. Patient expressed understanding and will seek treatment. It was also advised that she notify any current or recent sexual partners to also get tested and seek treatment. OSCAR BEYER Jan 21, 2021 16:53
== END 2021-01-19 17:53 | disposition home or self-care (01) ==
LOC: ER 15:08
DX: N30.00 Acute cystitis without hematuria (principal); B37.3 Candidiasis of vulva and vagina; R10.2 Pelvic and perineal pain; Z90.49 Acquired absence of other specified parts of digestive tract; F17.210 Nicotine dependence, cigarettes, uncomplicated
CPT/HCPCS: 76830; 76856; 81001; 81025; 87086; 87491; 87591; 99284; Q0111

== ENCOUNTER 2021-01-21 18:51 | Emergency (ER) | payer OTHER ==
[~2021-01-21] VITALS: Ht 157.5 cm; Wt 138.6 kg
[~2021-01-21 18:51] MED LIST changes: +FLUC150T PO; +SULF1TAB24 PO
[2021-01-21 19:55] VITALS: BP 166/86
[2021-01-21] MEDS ORDERED: DOXY100C3 PO (20:16)
--- NOTE | 2021-01-21 20:17 | PHYS DOC ---
Past Medical History Past Medical History: No Pertinent History, Other Additional Past Medical Histor: OBESITY (OSCAR BEYRE) Past Surgical History: Cholecystectomy, Tonsillectomy (OSCAR BEYER) Smoking Status: Current Every Day Smoker Alcohol Use: None Drug Use: None (OSCAR BEYER) General Adult EDM: Chief Complaint: SEXUALLY TRANSMITTED DISEASE HPI: HPI: Patient is a 25 year old female who presents for treatment for a positive chlamydia test result. Patient was seen in the department 2 days ago, and received a call back today to come for treatment. She is with her boyfriend, who is at bedside and is also checked in as a patient. She has no other complaints at this time. (OSCAR BEYER) Review of Systems: Review of Systems: ROS negative except as mentioned in HPI. (OSCAR BEYER) Heart Score: C/O Chest Pain: No (OSCAR BEYER) Allergies: Allergies: Allergies Coded Allergies Type Severity Reaction Last Updated Verified No Known Drug Allergies 01/19/21 No (OSCAR BEYER) Physical Exam: PE: Constitutional: Well developed, well nourished, no acute distress, non-toxic appearance. Cardiovascular: Heart rate regular rhythm, no murmur. Lungs & Thorax: Bilateral breath sounds clear to auscultation. Skin: Warm, dry, no erythema, no rash. Extremities: No tenderness, no cyanosis, no clubbing, ROM intact, no edema. Neurologic: Alert and oriented X 3, normal motor function, normal sensory function, no focal deficits noted. (OSCAR BEYER) Course & Med Decision Making: Course & Med Decision Making Pertinent Labs and Imaging studies reviewed. (See chart for details) As laboratory testing was already performed on Sunday, additional testing will be deferred. Patient tested positive for chlamydia, but gonorrhea was negative. She will be treated with doxycycline only. (OSCAR BEYER) Course & Med Decision Making Treatment plan and care provided by [facility]. I was available for consult. Chart reviewed. (KACY COHN DO) Breann Disclaimer: Breann Disclaimer: This electronic medical record was generated, in whole or in part, using a voice recognition dictation system. (OSCAR BEYER) Departure Departure Impression: Primary Impression: Chlamydia Disposition: HOME / SELF CARE / HOMELESS Condition: STABLE Referrals: ISIDRO DAVILA MD (PCP) Patient Instructions: Sexually Transmitted Disease, [id number] Additional Instructions: Please take full course of antibiotics. Return to the emergency department for pelvic pain, increased vaginal discharge or pain with urination. Scripts Doxycycline Hyclate (DOXYCYCLINE HYCLATE) 100 Mg Capsule 1 CAP PO BID for 7 Days, #14 CAP Take 1 capsule by mouth twice a day for 7 days. Prov: OSCAR BEYER 01/21/21 OSCAR BEYER Jan 21, 2021 20:17 KACY COHN DO Jan 22, 2021 23:44
[2021-01-21] MEDS ORDERED: DOXYCYCLINE HYCLATE 100 MG TABLET PO ONE (20:30)
== END 2021-01-21 20:39 | disposition home or self-care (01) ==
LOC: ER 18:51
DX: A74.9 Chlamydial infection, unspecified (principal); F17.200 Nicotine dependence, unspecified, uncomplicated; E66.9 Obesity, unspecified; Z90.49 Acquired absence of other specified parts of digestive tract; Z68.43 Body mass index [BMI] 50.0-59.9, adult
CPT/HCPCS: 99283

== ENCOUNTER 2021-03-19 11:46 | Emergency (ER) | payer OTHER ==
[~2021-03-19] VITALS: Ht 160 cm; Wt 145.0 kg
[~2021-03-19 11:46] MED LIST changes: +CYCL10TA19 PO; -CYCL10TA2 PO; +DOXY100C3 PO
[2021-03-19 11:56] VITALS: BP 161/90
[2021-03-19] MEDS ORDERED: DEXAMETHASONE SOD PHOS 4 MG/ML VIAL IVP ONE (12:45)
[2021-03-19] MEDS ORDERED: MORPHINE SULFATE 4 MG/ML INJ. IVP ONE (12:45)
[2021-03-19 13:04] LABS: BASO # 0.1 x10^3/uL (0.0-0.2); BASO % 2 % (0-3); EOS # 0.4 x10^3/uL (0.0-0.7); EOS % 7 % (0-3); HEMATOCRIT 43.7 % (36.0-47.0); HEMOGLOBIN 14.5 g/dL (12.0-15.5); LYMPH # 2.9 x10^3/uL (1.0-4.8); LYMPH % 49 % (24-48); MEAN CORPUSCULAR HEMOGLOBIN 27 pg (25-35); MEAN CORPUSCULAR HGB CONC 33 g/dL (31-37); MEAN CORPUSCULAR VOLUME 83 fL (79-100); MONO # 0.5 x10^3/uL (0.0-1.1); MONO % 8 % (0-9); NEUT % 34 % (31-73); PLATELET COUNT 273 x10^3/uL (140-400); RED CELL DISTRIBUTION WIDTH 14.6 % (11.5-14.5)
[2021-03-19 13:11] LABS: CALCIUM 8.7 mg/dL (8.5-10.1); CREATININE 0.7 mg/dL (0.6-1.0); GFR 123.4; POTASSIUM 4.2 mmol/L (3.5-5.1)
[2021-03-19] MEDS ORDERED: IOHEXOL 300 MG/ML 100ML VIAL. IV ONE (13:30)
[2021-03-19] MEDS ORDERED: CONTRAST GIVEN. MC PRN (13:30)
--- NOTE | 2021-03-19 14:19 | RAD ---
CT neck with contrast. HISTORY: Submental pain, swelling CT scan the neck was done using 70 mL Omnipaque 300 contrast. Visualized portions of the upper lobes of the lungs are clear. Thyroid is homogeneous. Submandibular glands are unremarkable. Parotid glands are unremarkable. There is a mucous retention cysts in the maxillary sinus on the right. Sinuses are otherwise clear. There is a probable cavity in a molar of the mandible on the right. There is no den nav abscess. Left neck lymph nodes are mildly prominent compared to the right side, etiology for mild adenopathy is not demonstrated. There is no retropharyngeal soft tissue swelling. No neck abscess i s noted. There are artifacts off the fillings in the teeth. IMPRESSION: 1. Mild nonspecific adenopathy in the neck on the left. 2. No definitive mass or abscess or other acute finding. PQRS Compliance Statement: One or more of the following individualized dose reduction techniques were utilized for this examinat ion: 1. Automated exposure control 2. Adjustment of the mA and/or kV according to patient size 3. Use of iterative reconstruction technique Electronically signed by: Olivier Tilley MD (03/19/2021 2:17 PM) [facility]
[2021-03-19 14:21] LABS: MONONUCLEOSIS PATIENT NEGATIVE (NEGATIVE)
--- NOTE | 2021-03-19 14:28 | PHYS DOC ---
Past Medical History Past Medical History: No Pertinent History, Other Additional Past Medical Histor: OBESITY Past Surgical History: Cholecystectomy, Tonsillectomy Smoking Status: Current Every Day Smoker Alcohol Use: None Drug Use: None General Adult EDM: Chief Complaint: SORE THROAT HPI: HPI: Patient is a 25 year old female without pertinent past medical history who pre sents with 3 days of progressive sore throat. Made worse by swallowing. Has not been eating as much due to the pain. States that it hurts worse with opening her mouth and with moving her head. States the pain is worse just under her chin. She thinks it feels swollen there. Denies any drooling, can tolerate her secretions, but with pain. Has had some chills, but no documented fevers. No sick contacts. No nasal congestion, cough, shortness of breath. No noisy breathing/stridor. No history of similar in the past. Does not think that she has any dental pain or dental infections. She does have a cavity that has not yet been treated. Review of Systems: Review of Systems: Constitutional: Denies fever. Reports chills. Eyes: Denies change in visual acuity. [] HENT: Reports sore throat Respiratory: Denies cough or shortness of breath. [] Cardiovascular: Denies chest pain or edema. [] GI: Denies abdominal pain, nausea, vomiting, bloody stools or diarrhea. [] : Denies dysuria. [] Musculoskeletal: Denies back pain or joint pain. [] Integument: Denies rash. [] Neurologic: Denies headache, focal weakness or sensory changes. [] Endocrine: Denies polyuria or polydipsia. [] Lymphatic: Denies swollen glands. [] Psychiatric: Denies depression or anxiety. [] Heart Score: C/O Chest Pain: N/A Risk Factors: Risk Factors: DM, Current or recent (<one month) smoker, HTN, HLP, family history of CAD, obesity. Risk Scores: Score 0 - 3: 2.5% MACE over next 6 weeks - Discharge Home Score 4 - 6: 20.3% MACE over next 6 weeks - Admit for Clinical Observation Score 7 - 10: 72.7% MACE over next 6 weeks - Early Invasive Strategies Current Medications: Current Medications Medications (Trade) Dose Ordered Sig/Suzie Start Time Stop Time Status Last Admin Dose Admin Dexamethasone Sodium Phosphate (Decadron) 4 mg 1X ONCE 03/19/21 12:45 03/19/21 12:46 DC 03/19/21 12:53 4 MG Info (CONTRAST GIVEN -- Rx MONITORING) 1 each PRN DAILY PRN 03/19/21 13:30 03/21/21 13:29 Iohexol (Omnipaque 300 Mg/ml) 70 ml 1X ONCE 03/19/21 13:30 03/19/21 13:31 DC 03/19/21 13:54 70 ML Morphine Sulfate (Morphine Sulfate) 4 mg 1X ONCE 03/19/21 12:45 03/19/21 12:46 DC 03/19/21 12:53 4 MG Allergies: Allergies: Allergies Coded Allergies Type Severity Reaction Last Updated Verified No Known Drug Allergies 03/19/21 No Physical Exam: PE: Constitutional: Appears uncomfortable HENT: Reports submental tenderness to palpation. Submental pain with opening of the mouth and with lateral movement of the neck. No evidence of trismus. No evidence of dental infection/abscess. Does report tenderness with palpation underneath the tongue. No stridor. Uvula is midline. No peritonsillar fullness. Tolerating secretions well Neck: Normal range of motion, no tenderness, supple, no stridor. [] Cardiovascular: Normal heart rate Lungs & Thorax: Normal work of breathing Skin: Warm, dry, no erythema, no rash. [] Extremities: No tenderness, no cyanosis, no clubbing, ROM intact, no edema. [] Neurologic: Alert and oriented X 3, normal motor function, normal sensory function, no focal deficits noted. [] Psychologic: Affect normal, judgement normal, mood normal. [] Current Patient Data: Labs: Laboratory Tests Test 03/19/21 12:56 White Blood Count 6.0 x10^3/uL (4.0-11.0) Red Blood Count 5.30 x10^6/uL (3.50-5.40) Hemoglobin 14.5 g/dL (12.0-15.5) Hematocrit 43.7 % (36.0-47.0) Mean Corpuscular Volume 83 fL (79-100) Mean Corpuscular Hemoglobin 27 pg (25-35) Mean Corpuscular Hemoglobin Concent 33 g/dL (31-37) Red Cell Distribution Width 14.6 % (11.5-14.5) H Platelet Count 273 x10^3/uL (140-400) Neutrophils (%) (Auto) 34 % (31-73) Lymphocytes (%) (Auto) 49 % (24-48) H Monocytes (%) (Auto) 8 % (0-9) Eosinophils (%) (Auto) 7 % (0-3) H Basophils (%) (Auto) 2 % (0-3) Neutrophils # (Auto) 2.0 x10^3/uL (1.8-7.7) Lymphocytes # (Auto) 2.9 x10^3/uL (1.0-4.8) Monocytes # (Auto) 0.5 x10^3/uL (0.0-1.1) Eosinophils # (Auto) 0.4 x10^3/uL (0.0-0.7) Basophils # (Auto) 0.1 x10^3/uL (0.0-0.2) Maternal Serum HCG Beta Subunit < 1 mIU/mL (0-5) Sodium Level 139 mmol/L (136-145) Potassium Level 4.2 mmol/L (3.5-5.1) Chloride Level 106 mmol/L (98-107) Carbon Dioxide Level 25 mmol/L (21-32) Anion Gap 8 (6-14) Blood Urea Nitrogen 8 mg/dL (7-20) Creatinine 0.7 mg/dL (0.6-1.0) Estimated GFR (Cockcroft-Gault) 123.4 Glucose Level 94 mg/dL (70-99) Calcium Level 8.7 mg/dL (8.5-10.1) Laboratory Tests 03/19/21 12:56 Laboratory Tests 03/19/21 12:56 Vital Signs: Vital Signs Date Time Temp Pulse Resp B/P (MAP) Pulse Ox O2 Delivery O2 Flow Rate FiO2 03/19/21 12:53 Room Air 03/19/21 11:56 97.9 75 15 161/90 (113) 97 97.9 EKG: EKG: [] Radiology/Procedures: Radiology/Procedures: [] Impression: [facility] [address] [place] [address] IMAGING REPORT Signed PATIENT: ERIC CORDERO DACCOUNT: [id number] : 1995 LOCATION: ER AGE: 25 SEX: F EXAM STATUS: REG ER ORD. PHYSICIAN: MILLY HURST MD REASON: submental pain, swelling PROCEDURE: CT SOFT TISSUE NECK W/CONTRAST CT neck with contrast. HISTORY: Submental pain, swelling CT scan the neck was done using 70 mL Omnipaque 300 contrast. Visualized portions of the upper lobes of the lungs are clear. Thyroid is homogeneous. Submandibular glands are unremarkable. Parotid glands are unremarkable. There is a mucous retention cysts in the maxillary sinus on the right. Sinuses are otherwise clear. There is a probable cavity in a molar of the mandible on the right. There is no dental abscess. Left neck lymph nodes are mildly prominent compared to the right side, etiology for mild adenopathy is not demonstrated. There is no retropharyngeal soft tissue swelling. No neck abscess is noted. The re are artifacts off the fillings in the teeth. IMPRESSION: 1. Mild nonspecific adenopathy in the neck on the left. 2. No definitive mass or abscess or other acute finding. PQRS Compliance Statement: One or more of the following individualized dose reduction techniques were utilized for this examination: 1. Automated exposure control 2. Adjustment of the mA and/or kV according to patient size 3. Use of iterative reconstruction technique Electronically signed by: Olivier Tilley MD (03/19/2021 2:17 PM) [facility] DICTATED and SIGNED BY: OLIVIER TILLEY MD DATE: 03/19/21 [id number] 0 Course & Med Decision Making: Course & Med Decision Making Pertinent Labs and Imaging studies reviewed. (See chart for details) Patient is a 25-year-old female who complains of 2 days of sore throat. Complains of submental tenderness, pain with range of motion, pain with mouth opening raising concern for deep space abscess/Charles's angina, however no evidence of edema on examination. CT neck/soft tissues ordered to evaluate these complaints, reveals with only nonspecific adenopathy on the left neck without mass or abscess. Wharton negative. Strep and covid testing pending. -- strep negative. patient refused covid. will be discharged with conservative management for pharyngitis (likely viral). Dragon Disclaimer: Dragon Disclaimer: This electronic medical record was generated, in whole or in part, using a voice recognition dictation system. Departure Departure Impression: Primary Impression: Pharyngitis Disposition: HOME / SELF CARE / HOMELESS Condition: STABLE Referrals: ISIDRO DAVILA MD (PCP) Schedule appointment if your symptoms are not improved by early next week Patient Instructions: Viral Pharyngitis Additional Instructions: Your strep test was negative. Your mononucleosis test was negative. Your CT scan was reassuring. This is likely a virus causing a sore throat. Most of these are self-limited and improved on their own. In the emergency department you were given dexamethasone, steroid, to help reduce swelling. For pain tylenol and ibuprofen are best used on a schedule. Please alternate between the two. -Tylenol 1000 mg every 6 hours (do not exceed 4000 mg in one day) -Ibuprofen 400 mg every 6 hours. Take with food. Do not take for more than 1 week. If your symptoms are persisting into next week please schedule follow-up appoint with your primary care doctor. MILLY HURST MD Mar 19, 2021 14:28
[2021-03-19] MEDS ORDERED: IBUPROFEN 200 MG TABLET. PO ONE (14:30)
[2021-03-19] MEDS ORDERED: ACETAMINOPHEN 500 MG TABLET PO ONE (14:30)
[2021-03-20] MEDS ORDERED: PENI500T PO (20:51)
== END 2021-03-19 15:25 | disposition home or self-care (01) ==
LOC: ER 11:46
DX: J02.9 Acute pharyngitis, unspecified (principal); F17.200 Nicotine dependence, unspecified, uncomplicated
CPT/HCPCS: 36415; 70491; 80048; 84702; 85025; 86308; 87070; 87880; 96374; 96375; 99285; J1100; J2270; Q9967

== ENCOUNTER 2021-03-20 18:47 | Emergency (ER) | payer OTHER ==
[~2021-03-20] VITALS: Ht 160 cm; Wt 131.0 kg
[2021-03-20 20:20] VITALS: BP 161/90
[2021-03-20] MEDS ORDERED: HYDROcodone/APAP 5/325MG 1 TAB TABLET PO ONE (20:45)
[2021-03-20] MEDS ORDERED: IBUPROFEN 200 MG TABLET. PO ONE (20:45)
[2021-03-20] MEDS ORDERED: PENI500T PO (20:51)
--- NOTE | 2021-03-20 20:51 | PHYS DOC ---
Past Medical History Past Medical History: No Pertinent History, Other Additional Past Medical Histor: OBESITY Past Surgical History: Cholecystectomy, Tonsillectomy Smoking Status: Current Every Day Smoker Alcohol Use: None Drug Use: None General Adult EDM: Chief Complaint: DENTAL PROBLEM HPI: HPI: Patient is a 25 year old female presents emergency department complaining of left lower molar dental pain. Patient reports she has cavities in her teeth and has an appointment to see her dentist this coming Sunday. Patient reports she has taken Tylenol at home for the her dental pain without relief. Patient reports she last took 2 extra strength Tylenol's at 9 AM this morning. Patient denies taking ibuprofen for pain. Patient states she would like to be on an antibiotic in case she needs to have dental work done and does not want to delay dental work care. Patient denies tongue numbness, facial numbness, facial paralysis. Patient denies recent fever or chills, patient denies trauma to her teeth. Patient denies other physical complaints or physical concerns. Review of Systems: Review of Systems: 14 body systems of review of systems have been reviewed. See HPI for pertinent positives and negative responses, otherwise all other systems are negative, nonpertinent or noncontributory. Constitutional: Negative except as outlined in HPI above. Skin: Negative except as outlined in HPI above. Eyes: Negative except as outlined in HPI above. HENT: Negative except as outlined in HPI above. Respiratory: Negative except as outlined in HPI above. Cardiovascular: Negative except as outlined in HPI above. GI: Negative except as outlined in HPI above. : Negative except as outlined in HPI above. Musculoskeletal: Negative except as outlined in HPI above. Integument: Negative except as outlined in HPI above. Neurologic: Negative except as outlined in HPI above. Endocrine: Negative except as outlined in HPI above. Lymphatic: Negative except as outlined in HPI above. Psychiatric: Negative except as outlined in HPI above. Heart Score: C/O Chest Pain: No Risk Factors: Risk Factors: DM, Current or recent (<one month) smoker, HTN, HLP, family history of CAD, obesity. Risk Scores: Score 0 - 3: 2.5% MACE over next 6 weeks - Discharge Home Score 4 - 6: 20.3% MACE over next 6 weeks - Admit for Clinical Observation Score 7 - 10: 72.7% MACE over next 6 weeks - Early Invasive Strategies Current Medications: Current Medications Medications (Trade) Dose Ordered Sig/Suzie Start Time Stop Time Status Last Admin Dose Admin Acetaminophen/ Hydrocodone Bitart (Lortab 5/325) 2 tab 1X ONCE 03/20/21 20:45 03/20/21 20:46 UNV Ibuprofen (Motrin) 600 mg 1X ONCE 03/20/21 20:45 03/20/21 20:46 UNV Allergies: Allergies: Allergies Coded Allergies Type Severity Reaction Last Updated Verified No Known Drug Allergies 03/19/21 No Physical Exam: PE: Constitutional: Well developed, well nourished, no acute distress, non-toxic appearance. 25-year-old female in no apparent distress. HENT: Normocephalic, atraumatic. No deep tissue infectious process of the oropharynx appreciated, no drooling, no trismus, poor dentition with dental caries, no bleeding of the gums, no gingivitis, no abscess appreciated. No broken teeth. No lymphadenopathy of the head or neck appreciated, bilateral TMs within normal limits, intact. Eyes: Conjunctiva normal, no discharge. Neck: Normal range of motion, no stridor. No nuchal rigidity, no meningismus signs Cardiovascular: No cyanosis appreciated, distal cap refill less than 2 seconds. Lungs & Thorax: Patient is in no respiratory distress, no audible adventitious lung sounds appreciated. Abdomen: Nontender, no abnormalities noted. Skin: Warm, dry, no erythema, no rash. Back: No tenderness, no deformities. Extremities: No tenderness, no cyanosis, no clubbing, ROM intact, no edema. Neurologic: Alert and oriented X 3, normal motor function, normal sensory function, no focal deficits noted. Psychologic: Affect normal, judgement normal, mood normal. Current Patient Data: Vital Signs: Vital Signs Date Time Temp Pulse Resp B/P (MAP) Pulse Ox O2 Delivery O2 Flow Rate FiO2 03/20/21 20:20 80 20 161/90 (113) Room Air EKG: EKG: [] Radiology/Procedures: Radiology/Procedures: [] Course & Med Decision Making: Course & Med Decision Making Pertinent Labs and Imaging studies reviewed. (See chart for details) 25-year-old female, vital signs reviewed, presents to the emergency department complaining of dental pain since yesterday. Physical examination nonconcerning for dental abscess however patient does have history of dental caries, reports appointment with dentist this coming Sunday. Will start on amoxicillin 500 mg twice daily x7 days. Strict follow-up with dentist this coming Sunday. Use [id number] Tylenol and or Motrin for pain. Will give oral pain medication today in the emergency department prior to discharge. Patient gave verbal understanding of follow-up with dentist this Sunday. Return to ER precautions and concerns. Is amenable to ED discharge planning. Discussed with the patient all findings and diagnostic testing as well as the need to follow-up with their primary care provider for further evaluation and treatment or return to the ED if any new or worsening symptoms. Strict return precautions were also discussed at length, the patient voiced understanding and agreement with the discharge planning. The patient was nontoxic in appearance, in no apparent distress, and hemodynamically stable at the time of disposition. Dragon Disclaimer: Dragon Disclaimer: This electronic medical record was generated, in whole or in part, using a voice recognition dictation system. Departure Departure Impression: Primary Impression: Dentalgia Disposition: HOME / SELF CARE / HOMELESS Condition: GOOD Referrals: ISIDRO DAVILA MD (PCP) Patient Instructions: Dental Pain Additional Instructions: You were seen today in the emergency department for dental pain of the lower left molar. There was no evidence of a dental abscess however dental pain can be very painful, you have reported you are seeing your dentist this coming Sun. You were given pain medication today for your dental pain, I am starting you on an antibiotic to cover for your dental caries and cavities. Please take as directed until complete or told otherwise by your dentist. Please keep your dentist appointment this Sunday. Please continue to use Tylenol and or Motrin for ongoing dental pain. Thank you for visiting our Emergency Department. It was a pleasure taking care of you today in the emergency department and we appreciate you trusting us with your care. If any additional problems come up don't hesitate to return to visit us. Please follow up with your primary care provider so they can plan additional care if needed and know about the problem that you had. If symptoms worsen come back to the Emergency Department. Any concerning symptoms that start such as chest pain, shortness of air, weakness or numbness on one side of the body, running high fevers or any other concerning symptoms return to the ER. Scripts Penicillin V Potassium (PENICILLIN V POTASSIUM) 500 Mg Tablet 1 TAB PO QID for 7 Days, #28 TAB 0 Refills Prov: ZAIRA LONG APRN 03/20/21 ZAIRA LONG APRN Mar 20, 2021 20:51
== END 2021-03-20 20:55 | disposition home or self-care (01) ==
LOC: ER 18:47
DX: K02.9 Dental caries, unspecified (principal); K08.89 Other specified disorders of teeth and supporting structures; F17.200 Nicotine dependence, unspecified, uncomplicated; E66.9 Obesity, unspecified; Z68.43 Body mass index [BMI] 50.0-59.9, adult
CPT/HCPCS: 99283